=== PATIENT | female | born 1980 ===

== ENCOUNTER 2018-01-20 08:14 | Emergency (ER) | payer OTHER ==
[2018-01-20 08:18] VITALS: BMI 25.8
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
[2018-01-20 09:55] LABS: BASO # 0.1 K/uL (0.0-0.2); EOS # 0.3 K/uL (0.0-0.7); EOS % 5.3 % (0.0-4.0); HEMOGLOBIN 11.2 g/dL (11.0-16.0); LYMPH # 1.4 K/uL (1.0-4.3); LYMPH % 26.5 % (20.0-40.0); MEAN CELL VOLUME 72.3 fL (81.0-99.0); MEAN CORPUSCULAR HEMOGLOBIN 23.4 pg (27.0-31.0); MEAN CORPUSCULAR HGB CONC 32.4 g/dL (33.0-37.0); MEAN PLATELET VOLUME 7.6 fL (7.2-11.7); MONO # 0.4 K/uL (0.0-0.8); MONO % 7.9 % (0.0-10.0); NEUT # 3.2 K/uL (1.8-7.0); NEUT % 59.3 % (50.0-75.0); RBC 4.77 Mil/uL (3.80-5.20); RED CELL DISTRIBUTION WIDTH 19.2 % (11.5-14.5); WHITE BLOOD COUNT 5.4 K/uL (4.8-10.8)
[2018-01-20 10:06] LABS: ALB/GLOB RATIO 1.3 (1.0-2.1); ALBUMIN 4.1 g/dL (3.5-5.0); ALT/SGPT 28 U/L (9-52); AST/SGOT 32 U/L (14-36); BLOOD UREA NITROGEN 14 mg/dL (7-17); CALCIUM 9.1 mg/dl (8.6-10.4); GFR AFRICAN-AMERICAN > 60; GFR NON-AFRICAN AMERICAN > 60; LIPASE 64 U/L (23-300)
--- NOTE | 2018-01-20 10:14 | CT ---
PROCEDURE: CT HEAD WITHOUT CONTRAST. HISTORY: Posterior headache COMPARISON: None available. TECHNIQUE: Axial computed tomography images were obtained through the head/brain without intravenous contrast. Radiation dose: Total exam DLP = 863 mGy-cm. This CT exam was performed using one or more of the following dose reduction techniques: Automated exposure control, adjustment of the mA and/or kV according to patient size, and/or use of iterative reconstruction technique. FINDINGS: HEMORRHAGE: No intracranial hemorrhage. BRAIN: No mass effect or edema. No atrophy or chronic microvascular ischemic changes. Punctate calcification and or granuloma in the posterior right temporal cortex on series 4, image 19. Punctate hypodensity in the left basal ganglia may represent prominent perivascular space. VENTRICLES: Unremarkable. No hydrocephalus. CALVARIUM: Unremarkable. PARANASAL SINUSES: Mild mucosal thickening of the ethmoid air cells. MASTOID AIR CELLS: Unremarkable as visualized. No inflammatory changes. OTHER FINDINGS: None. IMPRESSION: No acute intracranial abnormality. Punctate calcification and or granuloma in the posterior right temporal cortex on series 4, image 19. Punctate hypodensity in the left basal ganglia may represent prominent perivascular space. Mild mucosal thickening of the ethmoid air cells. If symptoms persists, consider correlation with MRI.
[2018-01-20 13:48] VITALS: O2SAT 100
--- NOTE | 2018-01-20 13:56 | MRI ---
PROCEDURE: MRI BRAIN WITHOUT CONTRAST HISTORY: Headache with numbness, tingling COMPARISON: Noncontrast head CT from 01/20/2018. TECHNIQUE: Multiplanar, multisequence MR images of the brain were obtained without intravenous contrast enhancement. FINDINGS: HEMORRHAGE: None DWI: No evidence of an acute or early subacute infarction. BRAIN PARENCHYMA: There is a tiny focus of T2/FLAIR hyperintense signal in the left anterior sub insular subcortical white matter. There is no mass, mass effect or abnormal extra-axial fluid collection. The midline sagittal structures are normal. There is no territorial infarction. VENTRICLES: The ventricles are normal in size, shape and configuration. CRANIUM: There is normal bone marrow signal pattern. ORBITS: Grossly unremarkable. PARANASAL SINUSES/MASTOIDS: There is a large retention cyst/ polyp in the left maxillary sinus. There is mild mucosal thickening in the paranasal sinuses and aerosolized secretions in the left sphenoid chamber. VASCULAR SYSTEM: There are normal signal voids in the larger intracranial arteries. OTHER FINDINGS: None. IMPRESSION: No acute intracranial abnormality. Solitary left subinsular subcortical white matter focus, strictly nonspecific. The differential considerations include migraine headache effect, gliosis, vasculitis, demyelinating disease including multiple sclerosis, and Lyme disease amongst others. Clinical correlation and follow-up is advised.
[2018-01-20 15:51] VITALS: BP 108/69; PULSE 73; RESP 20; TEMP 98.5
--- NOTE | 2018-01-22 02:28 | CARD ---
APPROVED REPORT EKG Measurement Heart [id number] <Conclusion> Normal sinus rhythm
== END 2018-01-20 16:00 | disposition home or self-care (01) ==
LOC: C.ER 08:14
DX: R51 Headache (principal)
CPT/HCPCS: 70450; 70551; 80053; 83690; 84484; 85025; 93005; 96365; 99285; J2765

== ENCOUNTER 2018-01-28 17:10 | Emergency (ER) | payer OTHER ==
[2018-01-28 17:11] VITALS: BMI 25.8
[2018-01-28 17:21] VITALS: BP 118/77; PULSE 79; RESP 20; TEMP 98.4; O2SAT 99
== END 2018-01-28 17:40 | disposition left against medical advice (07) ==
LOC: C.ER 17:10
DX: Z02.89 Encounter for other administrative examinations (principal); R51 Headache